=== PATIENT | male | born 1950 | race Caucasian/White ===

== ENCOUNTER → 2017-08-12 | Day surgery (SDC) | payer MEDICARE ==
[~2017-08-12] MED LIST: APIX5TAB PO; ASPI81TA21 PO; CARV6.252 PO; CHLO50TA PO; CLOR1TAB23 PO; ENAL20TA81 PO; GENTAMICIN SULFATE 80 MG/2 ML VIAL ONE; LACTATED RINGER'S 1000 ML INJ 1,000 ML ONE; LEVA750T PO; LEXA20TA PO; MIDAZOLAM HCL 2 MG/2 ML VIAL ONE; OMEP20TA39 PO; ONDANSETRON HCL 4 MG/2 ML VIAL IV PUSH ONE; OXYC-68 PO; PROPOFOL 200 MG/20 ML AMP IV ONE; SODIUM CHLORIDE 0.9% 100 ML BAG IV ONE; SODIUM CHLORIDE 0.9% 20 ML VIAL ONE; TEMA15 PO; ULOR40TA PO; ZOLP10TA3 PO; ZONI100C2 PO
--- NOTE | 2017-08-12 16:52 | TN ---
cc: BREEZY WANG M.D. DATE OF SURGERY 08/12/2017 PREOPERATIVE DIAGNOSIS Distal right ureteral calculus (6 mm) (ICD - 10 code N20.1). POSTOPERATIVE DIAGNOSIS Distal right ureteral calculus (6 mm) (ICD - 10 code N20.1). PROCEDURE Cystourethroscopy with right ureteroscopic stone basket manipulation (CPT code 59957). INDICATIONS Mr. Morales is a 66-year-old gentleman with intractable right flank pain, under CT was found to have a 6 mm distal right ureteral calculus presents now for definitive treatment. FINDINGS Normal urethra. 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 Bladder neck was normal. Ureteral orifice on the left normal size, shape and position effluxing clear urine. The ureteral orifice on the right is bulging with some fleshy-like debris emerging from it and some mild erythema and edema. The remainder the bladder is unremarkable with the exception of mild trabeculation. No diverticuli or cellules. The ureteroscopy shows a dilated ureter with some debris throughout the length of the ureter. Subsequently a 6 mm dark, irregular shaped stone was found at a dependent portion of the bladder during the procedure. The procedure was as follows. PROCEDURE DETAILS The procedure as well, risks and benefits were explained to the patient. Informed consent was obtained. The patient was taken to the major operative theater where he was placed in supine position. The patient was identified as well as the operative site. [place] time-out was performed in standard fashion. At this time general anesthetic and prophylactic intravenous antibiotics consisting of gentamicin 80 mg was administered. After adequate anesthetic the patient was placed in low dorsolithotomy position, prepped and draped usual sterile fashion. At this time a 21 [place] cystoscope with a 30 degrees lens was inserted into the urethra and bladder with the above findings. Attention was directed to the right ureteral orifice where that dark, fleshy debris was seen attached to the ureteral orifice. It was grasped with a grasping forceps and then removed and sent for final pathological evaluation. It is likely old clot. At this time after placing the scope back in the bladder, a 6 mm stone was identified in the dependent portion of the bladder that must have emerged from the orifice in the process of manipulating that debris. This was grasped with a grasping forceps and brought out, sent for crystallographic analysis. At this time the 0.035-inch Glidewire was inserted under fluoroscopic guidance up the ureter into the renal pelvis and then a semi rigid mini ureteroscope was placed and the entire bladder was systematically surveyed. There was no additional stones identified and just some debris. No tumors were identified within the ureter. The guidewire was removed as well as the ureteroscope. A cystoscope was placed back into the bladder. There was clear urine effluxing from the ureteral orifice and decision was made not to place a stent. The bladder was decompressed, the scope removed. The patient tolerated the procedure well, emerged from anesthetic without difficulty and transferred to the recovery room in stable condition to be discharged home when criteria is met. There were no obvious complications. MD KATHY Carrizales/KK /4:26 PM /4:36 PM
== END | disposition home or self-care (01) ==
LOC: ESDC 12:05
PROVIDERS: ATTEND Urology
DX: N20.1 Calculus of ureter (principal)
CPT/HCPCS: 00918; 52352; 76000; 88305; C1769; J1580; J2250; J2405; J3010; J7120